=== PATIENT | male | born 1970 | race African-American/Black ===

== ENCOUNTER 2016-10-06 03:46 | Emergency (ER) | payer SELFPAY ==
[~2016-10-06] VITALS: Ht 185.4 cm; Wt 74.8 kg
--- NOTE | 2016-10-06 03:48 | NUR ---
PT WALKED INTO ER C/O MIGRAINE HEADACHE SINCE YESTERDAY AM WITH N/V, PT IS ALERT, ORIENTED X 4, NO RESP DISTRESS NOTED OR REPORTED UPON ASSESSMENT... MD AT BEDSIDE..
[2016-10-06] MEDS ORDERED: chlorproMAZINE 50 MG/2 ML AMPUL IM ONE (05:15)
[2016-10-06] MEDS ORDERED: chlorproMAZINE 50 MG/2 ML AMPUL ONE (05:23)
[2016-10-06] MEDS ORDERED: METOCLOPRAMIDE HCL 10 MG/2 ML VIAL IM ONE (05:30)
[2016-10-06] MEDS ORDERED: METOCLOPRAMIDE HCL 10 MG/2 ML VIAL ONE (05:36)
[2016-10-06] MEDS ORDERED: HYDROMORPHONE 1 MG/1 ML DISP.SYRIN IM ONE (06:15)
[2016-10-06] MEDS ORDERED: HYDROMORPHONE 1 MG/1 ML DISP.SYRIN ONE (06:23)
--- NOTE | 2016-10-06 06:24 | NUR ---
Patient discharged to home in stable conditon. Written and verbal after care instructions given. Patient verbalizes understanding of instructions. pt walked out of ER unassisted with belongings at side...
[2016-10-06 06:26] VITALS: BP 139/97
== END 2016-10-06 06:28 | disposition home or self-care (01) ==
LOC: ER 03:49
DX: R51 Headache (principal); J45.909 Unspecified asthma, uncomplicated
CPT/HCPCS: 96372 ×2; 99284; A4663; J1170; J2765; J3230

== ENCOUNTER 2018-08-28 12:45 | Emergency (ER) | payer MEDICAID ==
[~2018-08-28] VITALS: Ht 185.4 cm; Wt 74.8 kg
--- NOTE | 2018-08-28 13:10 | NUR ---
Dr Morales at the bedside for MSE.
[2018-08-28] MEDS ORDERED: ALBUTEROL SULFATE 2.5 MG/3 ML NEBU NEB ONE (13:15)
[2018-08-28] MEDS ORDERED: HYDROCODONE/APAP 10-325 MG TABLET PO ONE ×2 (13:15→14:30)
[2018-08-28] MEDS ORDERED: HYDROCODONE/APAP 10-325 MG TABLET ONE ×2 (13:19→14:10)
[2018-08-28] MEDS ORDERED: ALBUTEROL SULFATE 2.5 MG/3 ML NEBU ONE (13:23)
[2018-08-28 13:26] LABS: *BILIRUBIN,URIN NEGATIVE (NEGATIVE); *BLOOD, URINE NEGATIVE (NEGATIVE); *CLARITY,URINE CLEAR (CLEAR); *COLOR,URINE YELLOW (YELLOW); *KETONES,URINE TRACE (NEGATIVE); *UROBILINOGEN,URINE 0.2 E.U./dl (NORMAL); LEUKOCYTE ESTERASE ,URINE NEGATIVE (NEGATIVE); NITRITE, URINE NEGATIVE (NEGATIVE); UGLUCOSE NEGATIVE (NEGATIVE)
[2018-08-28 13:30] LABS: BACTERIA,URINE FEW /HPF (NONE SEEN); RBC,URINE NONE SEEN /HPF (0-3); SQUAMOUS EPITHELIAL CELL,UR FEW /HPF (NONE SEEN); WBC,URINE NONE SEEN /HPF (0-3)
[2018-08-28 14:24] VITALS: BP 114/70
--- NOTE | 2018-08-28 14:25 | NUR ---
Patient discharged to home in stable conditon. Written and verbal after care instructions given. Patient verbalizes understanding of instructions. Pt left ER w/ steady gait.
== END 2018-08-28 14:25 | disposition home or self-care (01) ==
LOC: ER 12:45
DX: M54.5 Low back pain (principal); J45.909 Unspecified asthma, uncomplicated; X50.0XXA Overexertion from strenuous movement or load, initial encounter; Y93.89 Activity, other specified; Y92.89 Other specified places as the place of occurrence of the external cause; Y99.8 Other external cause status
CPT/HCPCS: A4663

== ENCOUNTER 2018-09-14 20:36 | Emergency (ER) | payer MEDICAID ==
[~2018-09-14] VITALS: Ht 182.9 cm; Wt 74.8 kg
[2018-09-14] MEDS ORDERED: ALBUTEROL SUL 2.5 MG/3 ML SOLN (20:51)
--- NOTE | 2018-09-14 20:55 | NUR ---
Patient ambulated with stable gai.t A/Ox4. Patient came in for c/o back pain x2 weeks. Pain 10/10 ADL's provoked. Respiratory even and unlabored, no cough no sob. No cardiovascular distress, all pulses palpable. No GI/ distress noted. Patient in bed at lowest position, side rails upx2, call light within reach. Fall precautions implemented per protocol.
[2018-09-14] MEDS ORDERED: HYDROCODONE/APAP 10-325 MG TABLET ONE (21:13)
[2018-09-14] MEDS ORDERED: ONDANSETRON ODT 4 MG TAB.RAPDIS ONE (21:13)
[2018-09-14] MEDS ORDERED: HYDROCODONE/APAP 10-325 MG TABLET PO ONE (21:15)
[2018-09-14] MEDS ORDERED: ONDANSETRON ODT 4 MG TAB.RAPDIS SL ONE (21:15)
[2018-09-14] MEDS ORDERED: ALBUTEROL SULFATE 2.5 MG/3 ML NEBU NEB ONE (21:45)
[2018-09-14] MEDS ORDERED: predniSONE 10 MG TABLET PO ONE (21:45)
[2018-09-14] MEDS ORDERED: IPRATROPIUM BROMIDE 0.5 MG/2.5 ML NEBU NEB ONE (21:45)
--- NOTE | 2018-09-14 21:49 | NUR ---
RT at bedside for breathing tx
[2018-09-14] MEDS ORDERED: ALBUTEROL SULFATE 2.5 MG/3 ML NEBU ONE (21:51)
[2018-09-14] MEDS ORDERED: IPRATROPIUM BROMIDE 0.5 MG/2.5 ML NEBU ONE (21:51)
[2018-09-14] MEDS ORDERED: predniSONE 20 MG TABLET ONE (22:21)
--- NOTE | 2018-09-14 22:36 | NUR ---
Patient discharged to home in stable conditon. Written and verbal after care instructions given. Patient verbalizes understanding of instructions. Patient ambulated with stable gait.
== END 2018-09-14 22:37 | disposition home or self-care (01) ==
LOC: ER 20:36
DX: J98.01 Acute bronchospasm (principal); R07.81 Pleurodynia; M54.40 Lumbago with sciatica, unspecified side; J45.909 Unspecified asthma, uncomplicated; Z79.899 Other long term (current) drug therapy
CPT/HCPCS: 71101; 93005; 94640; 99284; J7512; A4663; J3590; Q0162

== ENCOUNTER 2018-10-19 05:25 | Emergency (ER) | payer SELFPAY ==
[~2018-10-19] VITALS: Ht 185.4 cm; Wt 74.8 kg
[~2018-10-19 05:25] MED LIST: ALBUTEROL SUL 2.5 MG/3 ML SOLN
[2018-10-19] MEDS ORDERED: HYDROCODONE/APAP 5-325MG TABLET ONE (05:58)
[2018-10-19] MEDS ORDERED: HYDROCODONE/APAP 5-325MG TABLET PO ONE (06:00)
[2018-10-19 06:09] VITALS: BP 110/75
--- NOTE | 2018-10-19 06:11 | NUR ---
Patient discharged to home in stable conditon WITH UBER TAKING PATIENT HOME. Written and verbal after care instructions given. Patient verbalizes understanding of instructions. WALKED OUT OF ER WITH NO DISTRESS NOTED
== END 2018-10-19 06:11 | disposition home or self-care (01) ==
LOC: ER 05:27
DX: K40.90 Unilateral inguinal hernia, without obstruction or gangrene, not specified as recurrent (principal); J45.909 Unspecified asthma, uncomplicated; Z79.899 Other long term (current) drug therapy
CPT/HCPCS: A4663

== ENCOUNTER 2018-10-28 20:21 | Emergency (ER) | payer SELFPAY ==
[~2018-10-28] VITALS: Ht 185.4 cm; Wt 74.8 kg
[2018-10-28] MEDS ORDERED: ONDANSETRON ODT 4 MG TAB.RAPDIS SL ONE (20:45)
[2018-10-28] MEDS ORDERED: HYDROCODONE/APAP 10-325 MG TABLET PO ONE (20:45)
[2018-10-28] MEDS ORDERED: ONDANSETRON ODT 4 MG TAB.RAPDIS ONE (20:49)
[2018-10-28] MEDS ORDERED: HYDROCODONE/APAP 10-325 MG TABLET ONE (20:49)
[2018-10-28 20:55] VITALS: BP 108/78
--- NOTE | 2018-10-28 20:56 | NUR ---
Patient discharged to home in stable conditon. Written and verbal after care instructions given. Patient verbalizes understanding of instructions. WALKED OUT OF ER WITH NO DISTRESS NOTED
== END 2018-10-28 20:56 | disposition home or self-care (01) ==
LOC: ER 20:22
DX: K40.90 Unilateral inguinal hernia, without obstruction or gangrene, not specified as recurrent (principal); J45.909 Unspecified asthma, uncomplicated; Z79.899 Other long term (current) drug therapy
CPT/HCPCS: A4663; Q0162

== ENCOUNTER 2019-11-21 10:46 | Emergency (ER) | payer BC, MEDICAID ==
[~2019-11-21] VITALS: Ht 185.4 cm; Wt 83.9 kg
[2019-11-21] MEDS ORDERED: HYDROCODONE/APAP 5-325MG TABLET PO ONE (11:00)
[2019-11-21] MEDS ORDERED: methylPREDNISolone SOD SUCC 125 MG/2 ML VIAL IV ONE (11:00)
[2019-11-21] MEDS ORDERED: methylPREDNISolone SOD SUCC 125 MG/2 ML VIAL ONE (11:05)
[2019-11-21] MEDS ORDERED: HYDROCODONE/APAP 5-325MG TABLET ONE (11:05)
--- NOTE | 2019-11-21 11:30 | NUR ---
Patient discharged to home in stable condition. Written and verbal after care instructions given. Patient verbalizes understanding of instructions. Stressed follow up or return to ER for worsening s/s.pt breathing normally, no sign of sob.
== END 2019-11-21 11:30 | disposition home or self-care (01) ==
LOC: ER 10:46
DX: J45.901 Unspecified asthma with (acute) exacerbation (principal)
CPT/HCPCS: 96374; 99285; J2930; A4663

== ENCOUNTER 2019-12-17 15:53 | Emergency (ER) | payer BC ==
[~2019-12-17] VITALS: Ht 185.4 cm; Wt 90.7 kg
[2019-12-17] MEDS ORDERED: IPRATROPIUM BROMIDE 12.9 GM INHALER INH STA (16:02)
[2019-12-17] MEDS ORDERED: ALBUTEROL SULFATE 8 GM HFA.AER.AD IH STA (16:02)
[2019-12-17] MEDS ORDERED: methylPREDNISolone SOD SUCC 125 MG/2 ML VIAL ONE (16:12)
[2019-12-17] MEDS ORDERED: IPRATROPIUM BROMIDE 0.5 MG/2.5 ML NEBU ONE (16:13)
[2019-12-17] MEDS ORDERED: ALBUTEROL SULFATE 2.5 MG/3 ML NEBU ONE (16:13)
[2019-12-17] MEDS ORDERED: ALBU0.63 NEB (16:15)
[2019-12-17] MEDS ORDERED: ALBUTEROL SULFATE 2.5 MG/ 0.5 ML NEBU NEB ONE (16:15)
[2019-12-17] MEDS ORDERED: FLUT1DIS28 INH (16:15)
[2019-12-17] MEDS ORDERED: LORA-259 PO (16:15)
[2019-12-17] MEDS ORDERED: IPRATROPIUM BROMIDE 0.5 MG/2.5 ML NEBU NEB ONE (16:15)
[2019-12-17] MEDS ORDERED: MONT5TAB14 PO (16:15)
[2019-12-17] MEDS ORDERED: methylPREDNISolone SOD SUCC 125 MG/2 ML VIAL IV ONE (16:15)
--- NOTE | 2019-12-17 16:23 | NUR ---
PT IS IN ROOM #1A. DR HUMMEL EVALUATED THE PT.
[2019-12-17 16:24] LABS: BASOPHILS # (AUTO) 0.1 K/uL (0.0-8.0); BASOPHILS % (AUTO) 0.5 % (0.0-2.0); EOSINOPHILS # (AUTO) 0.2 K/uL (0.0-0.7); EOSINOPHILS % (AUTO) 2.3 % (0.0-7.0); HEMATOCRIT 43.6 % (36.7-47.1); HEMOGLOBIN 14.7 g/dL (12.5-16.3); LYMPHOCYTES # (AUTO) 1.4 K/uL (20.0-40.0); LYMPHOCYTES % (AUTO) 13.9 % (20.5-51.5); MEAN CORPUSCULAR HEMOGLOBIN 29.7 uug (23.8-33.4); MEAN CORPUSCULAR HGB CONC 34 g/dL (32.5-36.3); MEAN CORPUSCULAR VOLUME 88.3 fL (73.0-96.2); MONOCYTES # (AUTO) 0.5 K/uL (2.0-10.0); MONOCYTES % (AUTO) 5.4 % (0.0-11.0); NEUTROPHILS # (AUTO) 7.9 K/uL (1.8-8.9); NEUTROPHILS % (AUTO) 77.9 % (38.5-71.5); PLATELET COUNT (AUTO) 217 K/uL (152-348); RED BLOOD CELL COUNT(AUTO) 4.93 MIL/uL (4.06-5.63); WHITE BLOOD COUNT (AUTO) 10.1 K/uL (3.6-10.2)
[2019-12-17 16:35] LABS: CREATININE 1.2 mg/dL (0.6-1.3); POTASSIUM 3.6 mmol/L (3.5-5.1)
[2019-12-17 16:52] LABS: BILIRUBIN,DIRECT 0.1 mg/dL (0.0-0.2); BILIRUBIN,TOTAL 0.5 mg/dL (0.2-1.0); TOTAL PROTEIN, SERUM 6.9 g/dL (6.4-8.2)
--- NOTE | 2019-12-17 17:08 | NUR ---
PT WAS D/C'd TO HOME. D/C INSTRUCTIONS GIVEN TO THE PT BY DR HUMMEL.
[2019-12-17 17:09] VITALS: BP 142/94
== END 2019-12-17 17:10 | disposition home or self-care (01) ==
LOC: ER 15:59
DX: J45.901 Unspecified asthma with (acute) exacerbation (principal); F41.9 Anxiety disorder, unspecified; R00.0 Tachycardia, unspecified
CPT/HCPCS: 36415; 71045; 80048; 80076; 83880; 84484; 85025; 85730; 93005; 94640; 96374; 99285; J2930; 70030-TC; A4663; J3535; J3590